=== PATIENT | male | born 1945 | race Caucasian/White ===

== ENCOUNTER 2017-01-03 17:57 | Emergency (ER) | payer OTHER ==
[~2017-01-03] VITALS: Ht 182.9 cm; Wt 117.9 kg
[~2017-01-03 17:57] MED LIST: ALERTNESS AID200 MG PO; ASPIR 8181 MG PO; ATIVAN0.5 MG PO; ATORVASTATIN CA20 MG PO; BACTRIM DS 8001 TAB PO; BLM PO; BRINTELLIX10 MG PO; ECOTRIN81 MG PO; FIBERCON625 MG PO; FISH OIL CONCEN1 SGL PO; FUROSEMIDE20 MG PO; HUMALOG100 U/ML SC; INDOMETHACIN25 MG PO; KEFLEX500 MG PO; LANTUS INS100 UNITS/ SC; LISINOPRIL40 MG PO; LOPRESSOR 25MG25 MG PO; LOPRESSOR50 MG PO; LOSARTAN POTASS50 MG PO; METOCLOPRAMIDE10 MG PO; MULTIVITAMIN1 TAB PO; NEXIUM 40MG40 MG PO; NITROGLYCER0.4 MG/HR TD; PRADAXA150 MG PO; SERTRALINE HYDR50 MG PO; TAMSULOSIN HYD0.4 MG PO; TOPCARE ASPIRI325 MG PO; VITAMIN C500 M3 PO; VITAMIN D31000 IU PO
[2017-01-03 18:15] LABS: ABSOLUTE BASOPHIL COUNT 0 /CUMM (0.0-0.2); ABSOLUTE EOSINOPHIL COUNT 0.3 /CUMM (0.0-0.7); ABSOLUTE GRANULOCYTE CT 3.6 /CUMM (1.4-6.5); ABSOLUTE LYMPH COUNT 1.2 /CUMM (1.2-3.4); ABSOLUTE MONOCYTE COUNT 0.4 /CUMM (0.10-0.60); BASOPHIL % 0.6 % (0.0-2.0); EOSINOPHIL % 5.9 % (0-5); GRANULOCYTE % 65.1 % (42.2-75.2); HEMATOCRIT 42.7 % (42-52); MEAN CORPUSCULAR HGB 26.9 PG (27.0-31.0); MEAN CORPUSCULAR HGB CONC 32.9 G/DL (33.0-37.0); MEAN CORPUSCULAR VOLUME 81.8 FL (80.0-94.0); MEAN PLATELET VOLUME 8.5 FL (7.4-10.4); PLATELET COUNT 243 /CUMM (130-400); RBC DISTRIBUTION WIDTH 13.8 % (11.5-14.5); RED BLOOD CELL CT 5.23 /CUMM (4.70-6.10); WHITE BLOOD CELL COUNT 5.6 /CUMM (4.8-10.8)
--- NOTE | 2017-01-03 18:32 | ED GI/GU/ABDOMINAL COMPLAINT ---
History of Present Illness General Chief Complaint: General Adult Stated Complaint: FEVER, DIARRHEA Source: patient Exam Limitations: no limitations Vital Signs & Intake/Output Vital Signs & Intake/Output Vital Signs Date Time Temp Pulse Resp B/P Pulse O2 O2 Flow FiO2 Ox Delivery Rate 01/03 1956 97.7 53 16 137/67 98 Room Air 01/03 1829 98 Room Air 01/03 1801 96.6 67 16 135/73 98 Room Air ED Intake and Output 01/04 0000 01/03 1200 Intake Total 0 Output Total Balance 0 Intake, Oral 0 Patient 260 lb Weight Allergies Coded Allergies: NO KNOWN ALLERGIES (02/05/16) Reconcile Medications Atorvastatin Calcium (Lipitor) 20 MG TABLET 1 TAB PO DAILY CHOLESTEROL ( Reported) Calcium Polycarbophil (Fibercon) (Unknown Strength) TABLET 1 TAB PO DAILY GI (Reported) DABIGATRAN ETEXILATE MESYLATE (Pradaxa) 150 MG CAP 1 TAB PO BID BLOOD THINNER Esomeprazole (Nexium) 40 MG CAPSULE.DR 1 CAP PO DAILY AC GI (Reported) Indomethacin 25 MG CAP 50 MG PO TID PERICARDITIS Insulin Lispro, Recombinant (Humalog) 100 U/ML COLIN 10-12 U SC TIDAC DIABETES (Reported) Insulin-Lantus (Lantus Insulin) 100 UNITS/ML AVIS 15 U SC BID DM (Reported) Lorazepam (Ativan) 0.5 MG TAB 1 TAB PO DAILY PRN ANXIETY (Reported) Losartan Potassium 50 MG TAB 1 TAB PO DAILY HTN (Reported) METOCLOPRAMIDE HCL (Metoclopramide HCl) 10 MG TAB 1 TAB PO DAILY NAUSEA ( Reported) Metoprolol Tartrate (Lopressor) 50 MG TAB 75 MG PO BID afib Multivitamin (Multiple Vitamins) 1 EACH TABLET 1 TAB PO DAILY SUPPLEMENT ( Reported) SERTRALINE HCL (Sertraline Hydrochloride) 50 MG TAB 1 TAB PO DAILY MENTAL HEALTH (Reported) TAMSULOSIN HCL (Tamsulosin Hydrochloride) 0.4 MG CAP 1 CAP PO DAILY PRN PROSTATE (Reported) Triage Note: PT STATES HE HAS A LOW TEMP AND HE HAS NAUSEA THAT STARTED A FEW DAYS AGO. PT IS ALSO HAVING DIARRHEA OFF AND ON AND STATES HE CANT EAT. Triage Nurses Notes Reviewed? yes HPI: Patient is a 71-year-old male presents complaining of chills and low body temperature at home. Patient reports symptoms 2 days. Patient took his temperature at home and it was 96F. 2-3 episodes of soft stools daily. Mild dyspnea. Associated intermittent nausea. Positive fatigue. Patient denies sick contacts, vomiting, chest pain. (JO MAYBERRY) Past History Travel History Traveled to [place] past 21 day No Medical History Any Pertinent Medical History? 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 No (JO MAYBERRY) Review of Systems Review of Systems Constitutional: Reports: chills. Denies: fever. EENTM: Reports: no symptoms. Respiratory: Reports: short of breath. Denies: cough. Cardiovascular: Denies: chest pain. GI: Reports: see HPI. Genitourinary: Reports: no symptoms. Musculoskeletal: Reports: no symptoms. Skin: Reports: no symptoms. Neurological/Psychological: Reports: depressed. Hematologic/Endocrine: Reports: no symptoms. Immunologic/Allergic: Reports: no symptoms. (JO MAYBERRY) Physical Exam Physical Exam General Appearance: well developed/nourished, alert, awake Head: atraumatic, normal appearance Eyes: Bilateral: normal appearance, PERRL, EOMI. Ears, Nose, Throat, Mouth: hearing grossly normal, moist mucous membrane Neck: normal inspection, supple, full range of motion Respiratory: normal breath sounds, chest non-tender, no respiratory distress, lungs clear Cardiovascular: regular rate/rhythm Gastrointestinal: normal bowel sounds, soft, non-tender Back: normal inspection, normal range of motion Extremities: normal range of motion, 1+ bilateral lower extremity edema. Stasis dermatitis right lower extremity Neurologic/Psych: no motor/sensory deficits, awake, alert, oriented x 3, normal gait, normal mood/affect Core Measures ACS in differential dx? Yes ASA ordered for poss ACS? No-ACS ruled out Severe Sepsis Present: No Septic Shock Present: No (JO MAYBERRY) Progress Differential Diagnosis: AAA, AMI, appendicitis, biliary colic, cholecystitis, diverticulitis, gastritis, hepatitis, hernia, ischemic bowel, inflamm bowel dis, pancreatitis, SBO, ureterolithiasis, UTI/pyelo, influenza, viral syndrome Plan of Care: Orders Procedure Date/time Status Add-on Test (ER Only) 01/03 1838 Active EKG 01/03 183 Active TROPONIN LEVEL 01/03 180 Complete LACTIC ACID 01/03 1805 Complete COMPREHENSIVE METABOLIC PANEL 01/03 1805 Complete CBC WITHOUT DIFFERENTIAL 01/03 1805 Complete RAPID VIRAL INFLUENZA A 01/03 180 Complete Laboratory Tests 01/03/17 180: Anion Gap 9, Estimated GFR > 60, BUN/Creatinine Ratio 23.3, Glucose 144 H, Lactic Acid 1.0, Calcium 8.9, Total Bilirubin 0.6, AST 30, ALT 41, Alkaline Phosphatase 92, Troponin I < 0.01, Total Protein 7.1, Albumin 4.0, Globulin 3.1, Albumin/Globulin Ratio 1.3, CBC w Diff NO MAN DIFF REQ, RBC 5.23, MCV 81.8, MCH 26.9 L, RDW 13.8, MPV 8.5, Gran % 65.1, Lymphocytes % 21.8, Monocytes % 6.6, Eosinophils % 5.9 H, Basophils % 0.6, Absolute Granulocytes 3.6, Absolute Lymphocytes 1.2, Absolute Monocytes 0.4, Absolute Eosinophils 0.3, Absolute Basophils 0, PUBS MCHC 32.9 L 01/03/2017 7:48:26 PM: Patient was discussed with and seen by Dr. Walsh. Results of labs and imaging discussed with patient. Patient nontoxic appearing, tolerating oral intake. Appears stable for discharge. Instructed patient to follow up closely with his primary care doctor and return if any worsening. (JO MAYBERRY) Diagnostic Imaging: Viewed by Me: Radiology Read, CT Scan. Discussed w/RAD: Radiology Read, CT Scan. Radiology Impression: PATIENT: KITTY DONOHUE PRESENT AGE: 71 PATIENT ACCOUNT NO: [id number] : 46 LOCATION: [facility] ORDERING PHYSICIAN: JO ANGUIANO SERVICE DATE: 01/03/17 EXAM TYPE: CAT - CT ABD & PELVIS W IV CONTRAST EXAMINATION: CT ABDOMEN AND PELVIS WITH CONTRAST CLINICAL INFORMATION: Abdominal distention. Pain. Diarrhea. COMPARISON: None TECHNIQUE: Multidetector volumetric imaging was performed of the abdomen and pelvis before and after the IV administration of 100 mL of Omnipaque 300 intravenous contrast. Sagittal and coronal reformatted images were obtained on the technologist's workstation. DLP: 855 mGy-cm FINDINGS: LUNG BASES : The visualized lung bases are unremarkable. LIVER, GALLBLADDER, AND BILIARY TREE: The liver is normal in size, shape, and attenuation. No focal hepatic lesion or biliary ductal dilatation is present. The gallbladder is unremarkable with no evidence of radiopaque gallstones, gallbladder wall thickening, or obvious pericholecystic inflammatory changes. PANCREAS: Unremarkable. SPLEEN: Unremarkable. ADRENAL GLANDS: Unremarkable. KIDNEYS AND URETERS: The kidneys are normal in size, shape, and attenuation. No hydronephrosis, hydroureter seen. No perinephric stranding. BLADDER: Unremarkable. GASTROINTESTINAL TRACT: The small and large bowel are unremarkable. The appendix is identified but there are no inflammatory changes. ABDOMINAL WALL: Tiny fat-containing umbilical hernia. LYMPH NODES: Normal. VASCULAR: Unremarkable. PELVIC VISCERA: Unremarkable. OSSEOUS STRUCTURES: Unremarkable. IMPRESSION: 1. No bowel pathology. No colitis. 2. Nonobstructing tiny right-sided renal calculus. DICTATED BY: CHIDI KOHLI MD DATE/TIME DICTATED:01/03/171920 REGISTERED APPRAISER:MARCIO DATE/TIME TRANSCRIBED:01/03/171920 CONFIDENTIAL, DO NOT COPY WITHOUT APPROPRIATE AUTHORIZATION. <Electronically signed in Other Vendor System> SIGNED BY: CHIDI KOHLI MD 01/03/171932 CXR Impression: PATIENT: KITTY DONOHUE PRESENT AGE: 71 PATIENT ACCOUNT NO: [id number] : 46 LOCATION: [facility] ORDERING PHYSICIAN: JO ANGUIANO SERVICE DATE: 01/03/17 EXAM TYPE: RAD - XRY-CHEST XRAY, PA AND LATERAL EXAMINATION: XR CHEST CLINICAL INFORMATION: Chills, dyspnea, pneumonia COMPARISON: February 07, 2016 chest x-ray TECHNIQUE: 2 views of the chest were obtained. FINDINGS: The cardiomediastinal silhouette is within normal limits. The pulmonary vascularity is normal. The lungs are clear. No pleural effusions or pneumothorax. IMPRESSION: No acute cardiopulmonary finding. DICTATED BY: CHRISTEN TROY MD DATE/TIME DICTATED:01/03/171928 REGISTERED APPRAISER:MARCIO DATE/TIME TRANSCRIBED:01/03/171928 CONFIDENTIAL, DO NOT COPY WITHOUT APPROPRIATE AUTHORIZATION. <Electronically signed in Other Vendor System> SIGNED BY: CHRISTEN TROY MD 01/03/171933 Initial ED EKG: normal axis, normal intervals, normal p-waves, normal QRS complex, normal sinus rhythm, no ST T wave changes (JO MAYBERRY) Departure Departure Time of Disposition: 1947 Disposition: HOME OR SELF CARE Condition: Stable Clinical Impression Primary Impression: Viral syndrome Secondary Impressions: Kidney stone on right side Referrals: RYNE NUNO,Luis GAMEZ (PCP/Family) Additional Instructions: Make sure that you keep yourself well-hydrated. Follow-up with your primary doctor next week for further evaluation, call Thursday for appointment. Return to the emergency department if unable to stay hydrated or worsening of symptoms. Departure Forms: Customer Survey General Discharge Information (JO MAYBERRY) PA/TIRE STRIPPER Co-Sign Statement Statement: ED Attending supervision documentation- [X] I saw and evaluated the patient. I have also reviewed all the pertinent lab results and diagnostic results. I agree with the findings and the plan of care as documented in the PA's/TIRE STRIPPER's documentation. [X] I have reviewed the ED Record and agree with the PA's/TIRE STRIPPER's documentation. [] Additions or exceptions (if any) to the PAs/TIRE STRIPPER's note and plan are summarized below: [] (ERALINE NUNO,ARAMIS)
--- NOTE | 2017-01-03 19:33 | CT SCAN REPORT ---
EXAMINATION: CT ABDOMEN AND PELVIS WITH CONTRAST CLINICAL INFORMATION: Abdominal distention. Pain. Diarrhea. COMPARISON: None TECHNIQUE: Multidetector volumetric imaging was performed of the abdomen and pelvis before and after the IV administration of 100 mL of Omnipaque 300 intravenous contrast. Sagittal and coronal reformatted images were obtained on the technologist's workstation. DLP: 855 mGy-cm FINDINGS: LUNG BASES: The visualized lung bases are unremarkable. LIVER, GALLBLADDER, AND BILIARY TREE: The liver is normal in size, shape, and attenuation. No focal hepatic lesion or biliary ductal dilatation is present. The gallbladder is unremarkable with no evidence of radiopaque gallstones, gallbladder wall thickening, or obvious pericholecystic inflammatory changes. PANCREAS: Unremarkable. SPLEEN: Unremarkable. ADRENAL GLANDS: Unremarkable. KIDNEYS AND URETERS: The kidneys are normal in size, shape, and attenuation. No hydronephrosis, hydroureter seen. No perinephric stranding. BLADDER: Unremarkable. GASTROINTESTINAL TRACT: The small and large bowel are unremarkable. The appendix is identified but there are no inflammatory changes. ABDOMINAL WALL: Tiny fat-containing umbilical hernia. LYMPH NODES: Normal. VASCULAR: Unremarkable. PELVIC VISCERA: Unremarkable. OSSEOUS STRUCTURES: Unremarkable. IMPRESSION: 1. No bowel pathology. No colitis. 2. Nonobstructing tiny right-sided renal calculus.
--- NOTE | 2017-01-03 19:34 | RADIOLOGY REPORT ---
EXAMINATION: XR CHEST CLINICAL INFORMATION: Chills, dyspnea, pneumonia COMPARISON: February 07, 2016 chest x-ray TECHNIQUE: 2 views of the chest were obtained. FINDINGS: The cardiomediastinal silhouette is within normal limits. The pulmonary vascularity is normal. The lungs are clear. No pleural effusions or pneumothorax. IMPRESSION: No acute cardiopulmonary finding.
[2017-01-03 19:56] VITALS: BP 137/67
== END 2017-01-03 19:57 ==
LOC: ERH 17:57
PROVIDERS: Emergency Medicine
DX: N20.0 Calculus of kidney (principal); B34.9 Viral infection, unspecified
CPT/HCPCS: 74177; 87804; 87804-59; 93005; 93010

== ENCOUNTER 2017-10-19 20:37 | Emergency (ER) | payer OTHER ==
--- NOTE | 2017-10-19 22:23 | ED HEAD/FACIAL INJ COMPLAINT ---
History of Present Illness General Chief Complaint: Facial or Head Injury Stated Complaint: FELL AND HIT HEAD Source: patient, old records Exam Limitations: no limitations Vital Signs & Intake/Output Vital Signs & Intake/Output Vital Signs Date Time Temp Pulse Resp B/P B/P Pulse O2 O2 Flow FiO2 Mean Ox Delivery Rate 10/19 2043 98.0 78 22 158/70 98 Allergies Coded Allergies: NO KNOWN ALLERGIES (02/05/16) Reconcile Medications Atorvastatin Calcium (Lipitor) 20 MG TABLET 1 TAB PO DAILY CHOLESTEROL ( Reported) Calcium Polycarbophil (Fibercon) (Unknown Strength) TABLET 1 TAB PO DAILY GI (Reported) DABIGATRAN ETEXILATE MESYLATE (Pradaxa) 150 MG CAP 1 TAB PO BID BLOOD THINNER Esomeprazole (Nexium) 40 MG CAPSULE.DR 1 CAP PO DAILY AC GI (Reported) Indomethacin 25 MG CAP 50 MG PO TID PERICARDITIS Insulin Lispro, Recombinant (Humalog) 100 U/ML COLIN 10-12 U SC TIDAC DIABETES (Reported) Insulin-Lantus (Lantus Insulin) 100 UNITS/ML AVIS 15 U SC BID DM (Reported) Lorazepam (Ativan) 0.5 MG TAB 1 TAB PO DAILY PRN ANXIETY (Reported) Losartan Potassium 50 MG TAB 1 TAB PO DAILY HTN (Reported) METOCLOPRAMIDE HCL (Metoclopramide HCl) 10 MG TAB 1 TAB PO DAILY NAUSEA ( Reported) Metoprolol Tartrate (Lopressor) 50 MG TAB 75 MG PO BID afib Multivitamin (Multiple Vitamins) 1 EACH TABLET 1 TAB PO DAILY SUPPLEMENT ( Reported) SERTRALINE HCL (Sertraline Hydrochloride) 50 MG TAB 1 TAB PO DAILY MENTAL HEALTH (Reported) TAMSULOSIN HCL (Tamsulosin Hydrochloride) 0.4 MG CAP 1 CAP PO DAILY PRN PROSTATE (Reported) Triage Note: PER PT TRIPPED ON A STEP AND FELL HIT HEAD AND NO LOC BUT ABRASION TO FOREHEAD BILAT HANDS AND L ARM HIT DIRT AND KAYLA, PT ON PRADAXA Triage Nurses Notes Reviewed? yes HPI: Patient tripped and fell and hit his head on the ground. There is no loss of conscious. There is no nausea or vomiting. There is no headache. Patient isn' t productive. Patient states that he also hit both hands when he fell and he twisted his left knee. Patient denies any pain in his hand. Patient states he has a pain in his left knee only when he goes from a sitting to standing position. Patient is able to ambulate without difficulty. The pain is on the lateral aspect of his left knee. There is no radiation. Pain is aching and throbbing in nature. He rates it at 5 out of 10. Past History Travel History Traveled to [place] past 21 day No Medical History Any Pertinent Medical History? 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 No Review of Systems Review of Systems Constitutional: Reports: no symptoms. EENTM: Reports: no symptoms. Respiratory: Reports: no symptoms. Cardiovascular: Reports: no symptoms. GI: Reports: no symptoms. Genitourinary: Reports: no symptoms. Musculoskeletal: Reports: see HPI, joint pain. Skin: Reports: no symptoms. Neurological/Psychological: Reports: no symptoms. Hematologic/Endocrine: Reports: no symptoms. Immunologic/Allergic: Reports: no symptoms. All Other Systems: Reviewed and Negative Physical Exam Physical Exam General Appearance: well developed/nourished, alert, awake, mild distress Head: contusions Eyes: Bilateral: PERRL, EOMI. Ears, Nose, Throat: normal pharynx, normal ENT inspection, hearing grossly normal Neck: normal inspection, supple, no midline tenderness Respiratory: normal breath sounds, chest non-tender, no respiratory distress, lungs clear Cardiovascular: regular rate/rhythm, normal peripheral pulses Gastrointestinal: normal bowel sounds, soft, non-tender, no organomegaly Back: normal inspection, normal range of motion, no vertebral tenderness Extremities: normal inspection, normal capillary refill, normal range of motion, no edema, ABRASIONS TO BOTH HANDS Psychiatric: awake, alert, oriented x 3 Cranial Nerves: normal hearing, normal speech, PERRL Coordination/Gait: normal gait Motor/Sensory: no motor/sensory deficits Lymphatic: no anterior cervical neetu Progress Differential Diagnosis: facial fracture, ICH Plan of Care: Orders Procedure Date/time Status CT HEAD WO IV CONTRAST 10/19 2222 Active Diagnostic Imaging: Viewed by Me: CT Scan. Discussed w/RAD: CT Scan. Radiology Impression: PATIENT: KITTY DONOHUE SR PRESENT AGE: 72 PATIENT ACCOUNT NO: [id number] : 46 LOCATION: [facility] ORDERING PHYSICIAN: Jacoby Taylor MD SERVICE DATE: 10/19/17 EXAM TYPE: CAT - CT HEAD WO IV CONTRAST EXAMINATION: CT HEAD WITHOUT CONTRAST CLINICAL INFORMATION: Head injury, on Pradaxa COMPARISON: None TECHNIQUE: Contiguous axial imaging was performed from the skull base to vertex without intravenous administration of contrast. DLP: 698.12 mGy-cm FINDINGS: There is no evidence of acute intracranial hemorrhage or territorial infarction. No abnormal mass effect or midline shift is seen. Santos to white matter differentiation is well preserved. No extra-axial fluid collections are identified. The ventricles are normal in size. There is mild periventricular white matter hypoattenuation consistent with chronic small vessel ischemic disease. The osseous structures and soft tissues are normal. There is moderately extensive opacification of the bilateral maxillary sinuses and ethmoid air cells. The mastoid air cells are well-aerated. IMPRESSION: No acute intracranial pathology. DICTATED BY: Franklin Sands MD DATE/TIME DICTATED:10/19/172321 HEEL SCOURER:MARCIO DATE/ TIME TRANSCRIBED:10/19/172321 CONFIDENTIAL, DO NOT COPY WITHOUT APPROPRIATE AUTHORIZATION. <Electronically signed in Other Vendor System> SIGNED BY: Franklin Sands MD 10/19/17 2331 Departure Departure Disposition: HOME OR SELF CARE Condition: Stable Clinical Impression Primary Impression: Head injury Secondary Impressions: Left knee sprain Referrals: Sheldon NUNO,Abraham Monsivais MD,Jeferson Orellana (PCP/Family) Additional Instructions: FOLLOW UP WITH DR. CLOUD FOR YOUR KNEE RETURN IF SYMPTOMS WORSEN OR FOR ANY CONCERNS Departure Forms: Customer Survey General Discharge Information
--- NOTE | 2017-10-19 23:31 | CT SCAN REPORT ---
EXAMINATION: CT HEAD WITHOUT CONTRAST CLINICAL INFORMATION: Head injury, on Pradaxa COMPARISON: None TECHNIQUE: Contiguous axial imaging was performed from the skull base to vertex without intravenous administration of contrast. DLP: 698.12 mGy-cm FINDINGS: There is no evidence of acute intracranial hemorrhage or territorial infarction. No abnormal mass effect or midline shift is seen. Santos to white matter differentiation is well preserved. No extra-axial fluid collections are identified. The ventricles are normal in size. There is mild periventricular white matter hypoattenuation consistent with chronic small vessel ischemic disease. The osseous structures and soft tissues are normal. There is moderately extensive opacification of the bilateral maxillary sinuses and ethmoid air cells. The mastoid air cells are well-aerated. IMPRESSION: No acute intracranial pathology.
[2017-10-20 00:18] VITALS: BP 158/76
== END 2017-10-20 00:19 ==
LOC: ERH 20:37
DX: S83.92XA Sprain of unspecified site of left knee, initial encounter (principal); S09.90XA Unspecified injury of head, initial encounter; W18.09XA Striking against other object with subsequent fall, initial encounter; Y92.9 Unspecified place or not applicable; Y93.9 Activity, unspecified